=== PATIENT | male | born 1945 | race Caucasian/White ===

== ENCOUNTER 2019-06-13 10:34 | Emergency (ER) | payer SELFPAY ==
[2019-06-13 10:49] VITALS: BP 163/94; PULSE 77; RESP 16; TEMP 36.5; O2SAT 100
--- NOTE | 2019-06-13 10:54 | ED.URI ---
HPI - URI/Sore Throat General Chief Complaint: Upper Respiratory Infection Stated Complaint: Cold Time Seen by Provider: 06/13/19 10:54 Source: patient and RN notes reviewed Mode of arrival: ambulatory Limitations: no limitations History of Present Illness HPI Narrative: 73-year-old male presents with concern for cough. Reports flulike symptoms started 6 days ago and he has been taking [id number] medications with some relief. 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 Reports he had fever on days 1 and 2 of illness, has not had fever since. He reports his blood pressure is also been elevated since he has been L MD elicited complaint: cough Related Data Allergies Allergy/AdvReac Type Severity Reaction Status Date / Time lisinopril Allergy Severe Swelling Unverified 09/03/13 15:56 Penicillins Allergy Intermediate Hives Verified 06/13/19 10:47 Review of Systems Review of Systems: Narrative: CONSTITUTIONAL: Denies malaise, chills, sweats, or fever. EYES: Denies visual changes, redness, or discharge. ENT: Reports rhinorrhea, congestion. Denies sinus pain, otalgia and sore throat. CARDIOVASCULAR: Denies chest pain, palpitations, or edema. RESPIRATORY: Reports cough. Denies dyspnea. GASTROINTESTINAL: Denies abdominal pain, nausea, vomiting, diarrhea SKIN: Denies rash or itching. MUSCULOSKELETAL: Denies myalgia. NEUROLOGIC: Denies headache. All systems reviewed & are unremarkable except as noted in HPI and below PMFSH Comments At time of signature, agree with nursing past medical, surgical, social and family history. There is no relevant family history pertinent to the presenting complaint Exam Narrative: Exam Narrative: GENERAL: Well-appearing, well-nourished, and in no acute distress. HEAD: Normocephalic EYES: PERRLA, conjunctivae clear ENT: Nares clear, turbinates erythematous, clear discharge. Mucous membranes moist. TM pearly valdez with dull light reflex bilaterally; no tragal tenderness. Oropharynx not erythematous without lesions. Tonsils not enlarged and without exudate, no drooling, no hoarseness, no trismus. NECK: Supple. No lymphadenopathy CHEST: Clear to auscultation, breath sounds equal. No wheezing, rhonchi, rales, or stridor. No respiratory distress, speaks in full sentences. HEART: Regular rate and rhythm. No murmur heard. Normal peripheral pulses. SKIN: Warm, dry, no rash. NEURO: Alert and oriented x3. PSYCH: Normal mood and affect Course Course Emergency Course: Patient is aware of diagnosis, understands and agrees to treatment plan. Anticipatory guidance given. Patient agrees to follow-up as directed and is aware of reasons to seek care at the emergency department. Portions of this record may have been created with voice recognition software Vital Signs Vital signs: Vital Signs Temperature 97.7 F 06/13/19 10:49 Pulse Rate 77 06/13/19 10:49 Respiratory Rate 16 06/13/19 10:49 Blood Pressure 163/94 H 06/13/19 10:49 Pulse Oximetry 100 06/13/19 10:49 Temperature 97.7 F 06/13/19 10:49 Pulse Rate 77 06/13/19 10:49 Respiratory Rate 16 06/13/19 10:49 Blood Pressure 163/94 H 06/13/19 10:49 Pulse Oximetry 100 06/13/19 10:49 Reviewed. Pt has been instructed to follow up with his primary care provider within the next week regarding his elevated blood pressure today. MDM - URI/Sore Throat MDM Narrative Medical decision making narrative: Differential diagnosis considered: Strep pharyngitis, allergic rhinitis, upper respiratory tract infection, sinusitis, rhinosinusitis, nasopharyngitis. viral pharyngitis, otitis media, otitis externa, pneumonia, bronchitis, viral cough syndrome, viral syndrome, and influenza. Exam findings show no acute concerns or changes; patient is non-toxic appearing and is in no distress. Patient is appropriate for outpatient treatment and follow-up. Critical Care Time Critical Care Time Critical Care Time: No Discharge Plan Discharg
== END 2019-06-13 11:26 | disposition home or self-care (01) ==
PROVIDERS: Emergency Provider Nurse Practitioner
DX: R05 Cough (principal); I10 Essential (primary) hypertension; Z86.19 Personal history of other infectious and parasitic diseases
CPT/HCPCS: 99213; G0463

== ENCOUNTER 2019-08-31 10:49 | Emergency (ER) | payer SELFPAY ==
[2019-08-31 11:04] VITALS: BP 134/77; PULSE 75; RESP 16; TEMP 36.2; O2SAT 97
--- NOTE | 2019-08-31 11:28 | ED.MALEGU ---
HPI - Male Genitourinary General Chief complaint: Urogenital-Male Stated complaint: pain/urination Time Seen by Provider: 08/31/19 11:19 Source: patient and RN notes reviewed Mode of arrival: ambulatory Limitations: no limitations History of Present Illness HPI Narrative: Patient presents today with dysuria, dark-colored urine, and urinary urgency since June. At that time, he was seen by his PCP at the [facility] and prescribed an unknown antibiotic for an infection. States he did take the antibiotic, but was also drinking heavily at that time. Patient drinks 1 pint of vodka per day. He was told that his dark-colored urine was likely due to Azo that he had been taking. His last dose was 3 days ago. Denies hematuria, malodorous urine, nausea, vomiting, fever, abdominal pain or flank pain. Patient smokes 1 pack/day. Reports history of enlarged prostate. MD Complaint: dysuria Related Data Home Medications Medication Instructions Recorded Confirmed [facility] 08/31/19 Allergies Allergy/AdvReac Type Severity Reaction Status Date / Time lisinopril Allergy Severe Swelling Verified 08/31/19 11:13 Penicillins Allergy Intermediate Hives Verified 06/13/19 10:47 Review of Systems Review of Systems: Narrative: CONSTITUTIONAL: Denies body aches, fever, chills, or sweats. EYES: Denies visual changes, redness, or discharge. ENT: Denies rhinorrhea, congestion, sore throat, or otalgia. CARDIOVASCULAR: Denies chest pain, palpitations, or edema. RESPIRATORY: Denies cough or dyspnea. GASTROINTESTINAL: Denies abdominal pain, nausea, vomiting, or diarrhea. GENITOURINARY: Denies hematuria.+ Urgency, dark urine, dysuria SKIN: Denies rash, itching, or wounds. MUSCULOSKELETAL: Denies back pain, joint pain, or myalgia. NEUROLOGIC: Denies headache, numbness, tingling, or weakness. PSYCH: Denies depression or anxiety. PMFSH Social History Social History Gender identity (if verbalized by the patient): Male Comments At time of signature, I have reviewed and agree with nursing past medical, surgical, social and family history unless otherwise noted. Please see nursing chart for further information. There is no relevant family history pertinent to the presenting complaint Exam Narrative: Exam Narrative: GENERAL: Well-appearing, well-nourished, and in no acute distress. HEAD: Normocephalic, atraumatic. EYES: EOMI. No redness or drainage. Conjunctivae normal. ENT: Mucous membranes pink and moist. NECK: Normal AROM. Supple. No lymphadenopathy. CHEST: No respiratory distress. Clear to auscultation. HEART: Regular rate and rhythm. No murmur appreciated. Normal peripheral pulses. ABDOMEN: Soft, nontender, nondistended, normal active bowel sounds. -CVAT MUSCULOSKELETAL: No bony tenderness. EXTREMITIES: Normal range of motion. No edema. SKIN: Warm, dry, no rash. Capillary refill normal. Normal skin turgor. NEURO: No focal deficits. Alert and oriented x3. Gait steady. PSYCH: Normal affect. No signs of depression or anxiety. Course Vital Signs Vital signs: Vital Signs Temperature 97.2 F L 08/31/19 11:04 Pulse Rate 75 08/31/19 11:04 Respiratory Rate 16 08/31/19 11:04 Blood Pressure 134/77 08/31/19 11:04 Pulse Oximetry 97 08/31/19 11:04 Temperature 97.2 F L 08/31/19 11:04 Pulse Rate 75 08/31/19 11:04 Respiratory Rate 16 08/31/19 11:04 Blood Pressure 134/77 08/31/19 11:04 Pulse Oximetry 97 08/31/19 11:04 Reviewed. Pt has been instructed to follow up with his PCP regarding his elevated blood pressure today. MDM - Male Genitourinary Differential Diagnosis Differential diagnosis: Likely urinary tract infection, prostatitis and acute retention of urine Lab Data Attestation: I reviewed the patient's lab results. Labs: Urine Glucose Negative Reference Range: Negative Urine Bilirubin 1+ Reference Range: Negative Urine Ketone Negati
== END 2019-08-31 11:43 | disposition home or self-care (01) ==
PROVIDERS: Emergency Provider Nurse Practitioner
DX: N30.01 Acute cystitis with hematuria (principal); F17.210 Nicotine dependence, cigarettes, uncomplicated; Z86.19 Personal history of other infectious and parasitic diseases; N40.0 Benign prostatic hyperplasia without lower urinary tract symptoms
CPT/HCPCS: 81003; 87086; 99213; G0463

== ENCOUNTER 2021-11-18 19:40 | Emergency (ER) | payer SELFPAY ==
--- NOTE | ~2021-11-18 | CT_ITS ---
EXAMINATION: CT abdomen pelvis wo con DATE: 11/18/2021 21:41 INDICATION: hematuria TECHNIQUE: Computed tomography (CT) of the abdomen and pelvis was performed without intravenous contr ast. Automated exposure control and iterative reconstruction technique were employed. The dose-length product was 387.20 mGy-cm. COMPARISON: 06/01/2018. FINDINGS: Lower thorax: Emphysematous and senescent change. Peripheral reticulations may reflect a component of interstitial disease. Liver: Normal. Biliary/Gallbladder: Gallbladder is normal. No bile duct dilation. Pancreas: Stable duct dilation. No pancreatic mass. Spleen: Normal. Adrenals:No mass. Kidneys: No mass, stone, or hydronephrosis. GI tract: No small or large bowel dilation. Normal appendix. Diverticulosis without diverticulitis. Mesentery/Peritoneum: No ascites, mass, or free air. Retroperitoneum: No mass. Atherosclerotic abdominal aortic and/or arterial calcifications. Pelvis: Dennis catheter, in good position. Bladder wall thickening with mild inflammatory change. Depe ndent layering density within the bladder lumen. Nondependent gas. Mild prostatomegaly. Soft Tissues: Soft tissues and body wall unremarkable. Bones: No acute osseous finding. IMPRESSION: Dependent layering density within the bladder lumen may represent hemorrhagic, proteinaceous, or ceasar talline debris. Bladder wall thickening may be secondary to a chronic indwelling catheter, bladder in fection not excluded. Otherwise no acute abdominopelvic process detected. Reviewed, dictated and finalized at location K. IMPRESSION: Dependent layering density within the bladder lumen may represent hemorrhagic, proteinaceous, or crystalline debris. Bladder wall thickening may be secondary to a chronic indwelling catheter, bladder infection not excluded. Otherwise no acute abdominopelvic process detected.
[2021-11-18 20:01] VITALS: BP 157/86; PULSE 70; RESP 16; TEMP 36.3; O2SAT 100
[2021-11-18 20:33] LABS: Add Urine Microscopic? YES; Appearance Urine Turbid (Clear); Bilirubin Urine 3+ (Negative); Blood Urine 3+ (Negative); Color Urine Red (Yellow); Glucose Urine UA Negative (Negative); Ketones Urine 1+ mg/dL (Negative); Leukocyte Esterase Ur 3+ LEU/UL (Negative); Nitrate Urine Positive (Negative); Protein Urine 3+ mg/dL (Negative); Specific Grav Ur 1.025 (1.001-1.035); pH Urine 5.5 (5.0-9.0)
[2021-11-18 20:38] LABS: Bacteria Urine 3+ /hpf; RBC Urine >75 /hpf (0-2); WBC Urine >75 /hpf
--- NOTE | 2021-11-18 20:42 | ED.MALEGU ---
HPI - Male Genitourinary General Chief complaint: Urogenital-Male Stated complaint: blood in urine Time Seen by Provider: 11/18/21 20:22 Source: patient and RN notes reviewed Mode of arrival: ambulatory Limitations: no limitations History of Present Illness HPI Narrative: This is a 76 year old male with history of hypertension and BPH who presents for evaluation of hematuria. Patient states he developed lower abdominal pain yesterday and it has worsened. Last night he also developed burning with urination and hematuria. He states last night he was passed clots of blood. He has continued to have hematuria today and worsening pain. He denies nausea, vomiting, or fever. He denies back pain. He has had history of hematuria in the past but he states it was never this severe. He has urologist at the [facility]. He denies taking any blood thinner Related Data Home Medications Medication Instructions Recorded Confirmed [facility] 08/31/19 Allergies Allergy/AdvReac Type Severity Reaction Status Date / Time lisinopril Allergy Severe Swelling Verified 11/18/21 21:20 Penicillins Allergy Intermediate Hives Verified 11/18/21 21:20 Review of Systems Review of Systems: All systems reviewed & are unremarkable except as noted in HPI and below Constitutional: Constitutional: Reports chills, Reports fatigue and Denies fever(s) Cardiovascular: Cardiovascular: Denies chest pain Respiratory: Respiratory: Denies chest congestion and Denies cough Gastrointestinal: Gastrointestinal: Reports abdominal pain, Denies bloating, Reports nausea and Denies vomiting Genitourinary: Genitourinary: Reports hematuria and Reports dysuria PMFSH Past Medical History Medical History (Updated 11/19/21 @ 00:10 by Bhavani Campos MD) Hypertension Surgical History Surgical History (Updated 11/18/21 @ 20:45 by Bhavani Campos MD) H/O inguinal hernia repair Social History Social History (Updated 11/18/21 @ 20:46 by Bhavani Campos MD) Smoking status: Current every day smoker Gender identity (if verbalized by the patient): Male Exam Const: General: alert Nutritional Appearance: well nourished Limitations: no limitations HENMT: Head: normal to inspection Throat: posterior oropharynx normal Eyes: EOM: EOMs intact bilaterally Resp: Effort & Inspection: normal respiratory effort Auscultation: clear to auscultation bilaterally Cardio: Rate: regular rate Rhythm: regular rhythm Heart sounds: no murmurs GI: GI Palp: Yes Soft to palpation, Yes Tenderness to palpation present (GI), No Guarding due to palpation present (GI) and No Rigid due to palpation Auscultation: normal bowel sounds : General: Yes no CVA tenderness Penis: Yes uncircumcised Skin: General skin exam: normal color Rashes: no rashes Wounds: no wounds Neuro: General: patient oriented x3 and moves all extremities Cranial nerves: Yes CN's II-XII intact bilaterally Psych: Mental Status: mental status grossly normal Course Reevaluation(s) Reevaluation #1: PAtient had sanders catheter placed and bladder irrigated. Catheter draining well. Patient is having pain at catheter but no abdominal pain. Urine pink. I discussed wtih patient he will be discharged with catheter and he will need to follow up with his urologist. He is on flomax. He was given antibiotics in ER. Date: 11/19/21 Time: 00:08 Vital Signs Vital signs: Vital Signs Temperature 97.4 F L 11/18/21 20:01 Pulse Rate 70 11/18/21 20:01 Respiratory Rate 16 11/18/21 20:01 Blood Pressure 157/86 H 11/18/21 20:01 Pulse Oximetry 100 11/18/21 20:01 Oxygen Delivery Room Air 11/18/21 20:01 Temperature 97.4 F L 11/18/21 20:01 Pulse Rate 73 11/19/21 01:18 Respiratory Rate 18 11/19/21 01:18 Blood Pressure 142/74 H 11/19/21 01:18 Pulse Oximetry 98 11/19/21 01:18 Oxygen Delivery Room Air 11/18/21 20:01 MDM - Male Genitourinary Lab Data Attesta
[2021-11-18 20:50] VITALS: BP 159/78; PULSE 64; RESP 16; O2SAT 100
[2021-11-18 20:52] LABS: Basophils Percent Auto 0.5 % (0.2-1.2); Eosinophils Absolute Auto 0.1 K/mm3 (0-0.3); Eosinophils Percent Auto 1.9 % (0-4.4); Hematocrit 41.6 % (42.0-52.0); Hemoglobin 13.7 g/dL (14.0-18.0); Immature Granulocyte Absolute 0.01 K/mm3 (0.00-0.031); Immature Granulocyte Percent A 0.2 % (0-0.5); Lymphocytes Absolute Auto 2.17 K/mm3 (0.9-3.2); Lymphocytes Percent Auto 34.7 % (18.3-44.2); Mean Corpuscular HGB Conc 32.9 g/dl (32-36); Mean Corpuscular Hemoglobin 29.4 pg (26-34); Mean Corpuscular Volume 89.3 fl (80-100); Mean Platelet Volume 9.4 fl (7.4-10.4); Monocytes Absolute Auto 0.5 K/mm3 (0.1-0.6); Monocytes Percent Auto 7.7 % (2.6-8.5); Neutrophils Absolute Auto 3.5 K/mm3 (1.3-6.7); Platelet Count Result 174 k/mm3 (150-375); Red Blood Count 4.66 M/mm3 (4.6-6.20); Red Cell Distribution Width 13.1 % (11.5-14.5); White Blood Count 6.3 K/mm3 (4.5-10.0)
[2021-11-18 21:02] LABS: Alanine Aminotransferase 33 U/L (6-50); Albumin Level 4.4 g/dL (3.5-5.1); Alkaline Phosphatase 70 U/L (38-126); Anion Gap 9 mmol/L (8-16); Aspartate Amino Transferase 31 U/L (17-59); Bilirubin,Total 0.6 mg/dL (0.2-1.3); Blood Urea Nitrogen 10 mg/dL (9-20); Calcium 8.9 mg/dL (8.4-10.2); Carbon Dioxide 26 mmol/L (22-30); Chloride 107 mmol/L (98-107); Estimated CRCL calculation 56 ml/min; Estimated Glomerular Filt Rate > 60; Glucose 102 mg/dL (65-110); Potassium 4.2 mmol/L (3.4-5.0); Sodium 142 mmol/L (137-145)
[2021-11-18 21:06] LABS: INR 1.1; Partial Thromboplastin Time 30.1 SECONDS (22.3-36.8)
[2021-11-18] MEDS: MORPHINE SULFATE (*CRX) 4 MG/ML INJ IV PUSH (21:21)
[2021-11-18] MEDS: ONDANSETRON INJ 4 MG/2 ML VIAL IV PUSH (21:21)
[2021-11-18 22:57] VITALS: PULSE 63; RESP 16; O2SAT 99
[2021-11-18 23:05] VITALS: BP 151/91
--- NOTE | 2021-11-18 23:05 | PC.NURSE ---
Pt requesting additional pain medication for penile pain, EDP notified. NO new orders
[2021-11-19 01:18] VITALS: BP 142/74; PULSE 73; RESP 18; O2SAT 98
== END 2021-11-19 01:20 | disposition home or self-care (01) ==
PROVIDERS: Emergency Medicine; Emergency Provider General Practice
DX: N30.91 Cystitis, unspecified with hematuria (principal); I10 Essential (primary) hypertension; F17.200 Nicotine dependence, unspecified, uncomplicated
CPT/HCPCS: 36415; 51700; 74176; 80053; 81001; 85025; 85610; 85730; 87086; 96365; 96375; 99284; J1956; J2270; J2405

== ENCOUNTER 2021-11-23 09:18 | Emergency (ER) | payer SELFPAY ==
--- NOTE | ~2021-11-23 | CT_ITS ---
EXAMINATION: CT abdomen pelvis w con DATE: 11/23/2021 10:53 INDICATION: Abnormal pain TECHNIQUE: Computed tomography (CT) of the abdomen and pelvis was performed with 100 mL Omnipaque-300 intravenous contrast. Automated exposure control and iterative reconstruction technique were employe d. The dose-length product was 366.93 mGy-cm. COMPARISON: 11/18/21 and 06/01/2018 FINDINGS: Chronic mild irregular peripheral septal line thickening along with some honeycombing consistent with chronic interstitial lung disease with usual interstitial pneumonia (UIP). A few small calcified nod ules in the right lower lobe and a couple tiny hepatic and splenic calcific lesions consistent with o ld granulomatous disease. Heart size is normal. No pericardial or pleural effusion. Gallbladder, panc reas and bilateral adrenal glands are normal. No change in subcentimeter bilateral renal cysts. There is a Dennis catheter within the partially decompressed bladder which demonstrates diffuse edematous p attern wall thickening with mucosal hyperemia with mild stranding in the surrounding fat suspicious f or cystitis. Mild prostatomegaly measuring 4.6 x 3.7 cm. There is mild colonic diverticulosis with a descending colon predominance. There is no adjacent inflammatory change to suggest diverticulitis. Sm all bowel and appendix are normal . No pericecal inflammatory change to suggest acute appendicitis. S mall fat-containing direct left inguinal hernia. No free intraperitoneal gas or fluid. No pathologica lly enlarged abdominal or pelvic lymphadenopathy. Mild lumbar dextroscoliosis with mild to moderate l umbar spondylosis. Prominent Schmorl's nodes on both sides of the L4-L5 disc space. IMPRESSION: 1. Dennis catheter in the bladder which demonstrated prominent wall thickening with mucosal hyperemia and stranding in the surrounding fat suspicious for cystitis. Correlate with urinalysis. 2. Mild diverticulosis. 3. Mild prostatomegaly. 4. Chronic peripheral interstitial lung disease at the lung bases with appearance favoring usual inte rstitial pneumonia (UIP). Reviewed, dictated and finalized at location A. IMPRESSION: 1. Dennis catheter in the bladder which demonstrated prominent wall thickening w ith mucosal hyperemia and stranding in the surrounding fat suspicious for cysti tis. Correlate with urinalysis. 2. Mild diverticulosis. 3. Mild prostatomegaly. 4. Chronic peripheral interstitial lung disease at the lung bases with appearan ce favoring usual interstitial pneumonia (UIP).
[2021-11-23 09:21] VITALS: BP 123/67; PULSE 86; RESP 18; TEMP 36.4; O2SAT 98
[2021-11-23] MEDS: SODIUM CHLORIDE 0.9% IV 1,000 ML 999 ML IV CONT (10:02)
[2021-11-23 10:12] LABS: Basophils Percent Auto 0.3 % (0.2-1.2); Eosinophils Absolute Auto 0.1 K/mm3 (0-0.3); Eosinophils Percent Auto 1.3 % (0-4.4); Hematocrit 36.4 % (42.0-52.0); Hemoglobin 12.5 g/dL (14.0-18.0); Immature Granulocyte Absolute 0.01 K/mm3 (0.00-0.031); Immature Granulocyte Percent A 0.1 % (0-0.5); Lymphocytes Absolute Auto 1.89 K/mm3 (0.9-3.2); Lymphocytes Percent Auto 26.3 % (18.3-44.2); Mean Corpuscular HGB Conc 34.3 g/dl (32-36); Mean Corpuscular Hemoglobin 29.8 pg (26-34); Mean Corpuscular Volume 86.7 fl (80-100); Mean Platelet Volume 9.4 fl (7.4-10.4); Monocytes Absolute Auto 0.7 K/mm3 (0.1-0.6); Monocytes Percent Auto 9.7 % (2.6-8.5); Neutrophils Absolute Auto 4.5 K/mm3 (1.3-6.7); Neutrophils Percent Auto 62.3 % (45.5-73.1); Platelet Count Result 181 k/mm3 (150-375); Red Cell Distribution Width 12.6 % (11.5-14.5); White Blood Count 7.2 K/mm3 (4.5-10.0)
[2021-11-23 10:13] LABS: Appearance Urine Cloudy (Clear); Bilirubin Urine 1+ (Negative); Blood Urine 3+ (Negative); Glucose Urine UA Negative (Negative); Ketones Urine 1+ mg/dL (Negative); Leukocyte Esterase Ur 2+ LEU/UL (Negative); Nitrate Urine Negative (Negative); Protein Urine 3+ mg/dL (Negative); Specific Grav Ur 1.025 (1.001-1.035)
[2021-11-23 10:24] LABS: Alanine Aminotransferase 22 U/L (6-50); Albumin Level 3.7 g/dL (3.5-5.1); Alkaline Phosphatase 44 U/L (38-126); Anion Gap 8 mmol/L (8-16); Aspartate Amino Transferase 27 U/L (17-59); Bilirubin,Total 0.7 mg/dL (0.2-1.3); Blood Urea Nitrogen 17 mg/dL (9-20); Calcium 8.8 mg/dL (8.4-10.2); Carbon Dioxide 23 mmol/L (22-30); Chloride 103 mmol/L (98-107); Estimated CRCL calculation 56 ml/min; Estimated Glomerular Filt Rate > 60; Glucose 161 mg/dL (65-110); Lipase 91 U/L (23-300); Potassium 3.4 mmol/L (3.4-5.0); Sodium 134 mmol/L (137-145)
[2021-11-23 10:42] LABS: Lactic Acid Reflex 1.9 mmol/L (0.7-2.0)
[2021-11-23 10:47] LABS: Mucus Urine Rare /lpf; RBC Urine >75 /hpf (0-2); Squamous Epithelial Cell Urine Rare /hpf (Few); WBC Urine >75 /hpf
[2021-11-23 11:01] LABS: Add Urine Microscopic? YES; Color Urine Light Red (Yellow)
--- NOTE | 2021-11-23 11:38 | PC.NURSE ---
Pt reported to this RN that he does not want to leave here and go home. Pt reports he lives with his 13 year old son and his significant other, and her son. Pt reports they are drinkers and there's always loud music and it's not a healing environment. 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 There are stairs at my place and it's hard to walk up them with this leg bag. Case coordination called, states she will come speak with patient.
--- NOTE | 2021-11-23 13:02 | PCCCNOTE ---
Addendum entered by Lori Taylor RN 11/23/21 13:37: Called to ID SW at number provided by patient [phone], left a message. Addition: When updating Dr. Sandoval and ED RN Domi, requested that RN will get him up/walk him to assess functional/mobility status. Original Note: Called to meet with patient about home environment. Met with patient in ER Room 3,. Patient states that he is trying to get into a rehab/group home to rehab and recover due to infection and catheter. Patient states that he lives at home with his ladyfriend Linda Suarez, patient states that she is off from work and drinking more now. Patient states that she was a day late picking up his medication but he does have the medication now. He also lives with his son that is 13 and the patient's step son who is 30 years and works a lot. He states that Linda is her late 50's and he denies any physical or emotional abuse. He is able to walk around at home and denies any use of assisting devices. He states that he is working with a ID SW to get into a ID SNF. Patient states that a SW is coming to his house of the for an eval. [facility] since he prefers to be around other patient's that understand what is was to be a [place] during [place] war. Patient states that his SW at the [facility] is at [phone]. Advised that this palliative care specialist will call and leave her a message. Patient is agreeable. Advised that this palliative care specialist would to not be able to get into a [facility], patient is agreeable to keep working with ID SW to get into the choice facility. Patient is complaining of pain related to is catheter. He was given Tylenol but is not getting good relief. Advised that the medical staff would be notified. Update bedside MARILYNN Vega and ED provider Dr. Sandoval.
[2021-11-23] MEDS: traMADol HCL (*CRX) 50 MG TABLET PO (13:17)
--- NOTE | 2021-11-23 14:00 | PC.NURSE ---
Addendum entered by Domi Davila RN 11/23/21 14:01: Pt's sanders bag emptied. Original Note: Pt ambulated slowly but independently around the ED. Walked to RR and back to room as well. updated.
--- NOTE | 2021-11-23 15:18 | ED.GENADULT ---
HPI - General Adult General Chief complaint: Urogenital-Male Stated complaint: ABD/RECTAL PAIN Source: RN notes reviewed History of Present Illness HPI narrative: Patient presents emergency department from home for abdominal pain. 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 States he has been taking Tylenol for the pain with minimal relief with last dose yesterday states he is scheduled to see a urologist at the [facility] this week Related Data Home Medications Medication Instructions Recorded Confirmed [facility] 08/31/19 Allergies Allergy/AdvReac Type Severity Reaction Status Date / Time lisinopril Allergy Severe Swelling Verified 11/18/21 21:20 Penicillins Allergy Intermediate Hives Verified 11/18/21 21:20 Review of Systems Review of Systems: Gen.: Denies fevers or chills ENT: Denies congestion Respiratory: Denies shortness of breath or cough CV: Denies chest pain or palpitations GI: Reports lower abdominal pain, denies nausea, emesis or diarrhea reports Dennis catheter Musculoskeletal: Denies back pain or muscle pain Neuro: Denies numbness, tingling, weakness or focal weakness Skin: Denies rash Except as documented, all other systems reviewed and negative [facility] Past Medical History Medical History Hypertension Surgical History Surgical History (Updated 11/18/21 @ 20:45 by Bhavani Campos MD) H/O inguinal hernia repair Social History Social History Smoking status: Current every day smoker Gender identity (if verbalized by the patient): Male Exam Narrative: APPEARANCE: No acute distress, nontoxic, resting in bed EYES: EOMI HEENT: Normocephalic, atraumatic, OMM RESPIRATORY: No respiratory distress Clear to auscultation bilaterally with no rhonchi wheezing or rales. CARDIOVASCULAR: Regular rate and rhythm without murmurs rubs or gallops. ABDOMINAL: Soft, nondistended tender to palpation in the suprapubic and right lower quadrant left lower quadrant no tenderness right upper quadrant left lower quadrant no rebound or guarding Rectal: No hemorrhoids or fissures nontender to palpation no fluctuance : Dennis catheter present draining yellow urine there is no skin lesions seen there is no swelling of the scrotum no testicular tenderness there is no erythema of the scrotum or perineum MUSCULOSKELETAl: Moves all extremities. No clubbing, cyanosis or edema. NEURO: Awake and alert. Following commands, speech normal, no focal deficits SKIN:: Warm, dry. No rashes lesions or abrasions PSYCHIATRIC: Normal affect/mood, Course Course Emergency Course: Reviewed old records the patient did have a UA with culture sent that was negative from 5 days Discussed with patient results of workup and diagnosis. Discussed need for follow-up with primary care, proper use of medication, and reasons to return to the emergency department. Patient understands and agrees to current treatment plan patient states he does not have any more antibiotics at home he states he took a dose this morning but is out of antibiotics he is unsure if he lost his antibiotics right-I will place the patient on a few more days of Levaquin Vital Signs Vital signs: Vital Signs Temperature 97.5 F L 11/23/21 09:21 Pulse Rate 86 11/23/21 09:21 Respiratory Rate 18 11/23/21 09:21 Blood Pressure 123/67 11/23/21 09:21 Pulse Oximetry 98
[2021-11-23] MEDS: OXYBUTYNIN CHLORIDE 5 MG TABLET PO (15:46)
[2021-11-23 15:53] VITALS: BP 123/83; PULSE 68; RESP 15; O2SAT 100
[2021-11-23 16:40] VITALS: BP 126/74; PULSE 71; RESP 17; O2SAT 98
--- NOTE | 2021-11-23 16:41 | PCCCNOTE ---
Patient cleared for discharge does not have any money for transportation, step son is working and his lady friend at home has had an increase in alcohol intake. Patient does not drive and his meds were picked up one day late after previous admission as no one was able to pick them up for him. Prescriptions have been sent to [facility] in [facility]. Cab voucher provided for two stops-first stop to [facility] pharmacy to bulk picker meds and 2nd stop to him home. Home address confirmed with patient. Cab voucher provided to bedside RN.
== END 2021-11-23 16:40 | disposition home or self-care (01) ==
PROVIDERS: Emergency Provider Emergency Medicine
DX: N39.0 Urinary tract infection, site not specified (principal); I10 Essential (primary) hypertension; F17.200 Nicotine dependence, unspecified, uncomplicated; K57.90 Diverticulosis of intestine, part unspecified, without perforation or abscess without bleeding; N40.0 Benign prostatic hyperplasia without lower urinary tract symptoms; J84.89 Other specified interstitial pulmonary diseases
CPT/HCPCS: 36415; 74177; 80053; 81001; 83605; 83690; 85025; 87086; 96361; 96374; 99284; A9270; J0131; J7030; Q9967

== ENCOUNTER 2021-11-24 07:17 | Emergency (ER) | payer SELFPAY ==
[2021-11-24 07:19] VITALS: BP 126/75; PULSE 71; RESP 20; TEMP 36.1; O2SAT 99
[2021-11-24 08:08] LABS: Basophils Percent Auto 0.6 % (0.2-1.2); Eosinophils Absolute Auto 0.1 K/mm3 (0-0.3); Eosinophils Percent Auto 1.7 % (0-4.4); Hematocrit 36.2 % (42.0-52.0); Hemoglobin 12.4 g/dL (14.0-18.0); Immature Granulocyte Absolute 0.02 K/mm3 (0.00-0.031); Immature Granulocyte Percent A 0.3 % (0-0.5); Lymphocytes Absolute Auto 1.98 K/mm3 (0.9-3.2); Lymphocytes Percent Auto 27.3 % (18.3-44.2); Mean Corpuscular HGB Conc 34.3 g/dl (32-36); Mean Corpuscular Hemoglobin 29.6 pg (26-34); Mean Corpuscular Volume 86.4 fl (80-100); Monocytes Absolute Auto 0.7 K/mm3 (0.1-0.6); Monocytes Percent Auto 10.1 % (2.6-8.5); Neutrophils Absolute Auto 4.4 K/mm3 (1.3-6.7); Platelet Count Result 166 k/mm3 (150-375); Red Blood Count 4.19 M/mm3 (4.6-6.20); Red Cell Distribution Width 12.8 % (11.5-14.5); White Blood Count 7.2 K/mm3 (4.5-10.0)
[2021-11-24 08:19] LABS: Alanine Aminotransferase 20 U/L (6-50); Albumin Level 3.8 g/dL (3.5-5.1); Alkaline Phosphatase 46 U/L (38-126); Anion Gap 9 mmol/L (8-16); Aspartate Amino Transferase 26 U/L (17-59); Bilirubin,Total 0.7 mg/dL (0.2-1.3); Blood Urea Nitrogen 10 mg/dL (9-20); Calcium 8.5 mg/dL (8.4-10.2); Carbon Dioxide 22 mmol/L (22-30); Chloride 103 mmol/L (98-107); Estimated Glomerular Filt Rate > 60; Glucose 117 mg/dL (65-110); Lactic Acid Reflex 0.9 mmol/L (0.7-2.0); Potassium 3.5 mmol/L (3.4-5.0); Sodium 134 mmol/L (137-145)
[2021-11-24 08:25] LABS: INR 1.2; Prothrombin Time 14.8 Seconds (11.1-14.7)
[2021-11-24 08:26] LABS: Partial Thromboplastin Time 29.3 SECONDS (22.3-36.8)
[2021-11-24] MEDS: traMADol HCL (*CRX) 50 MG TABLET PO (09:21)
--- NOTE | 2021-11-24 09:27 | PC.NURSE ---
lópez duncan to remove pt sanders catheter. This rn removed pt catheter at this time.
--- NOTE | 2021-11-24 09:57 | PC.NURSE ---
Reg Breakfast diet tray ordered
--- NOTE | 2021-11-24 11:36 | ED.MALEGU ---
HPI - Male Genitourinary General Chief complaint: Urogenital-Male Stated complaint: CATHETER PAIN Time Seen by Provider: 11/24/21 07:17 Source: RN notes reviewed History of Present Illness HPI Narrative: Patient presents emergency department from home via EMS for catheter pain. The patient states he had a Dennis catheter placed approximately 6 days ago states that he continues to have pain in his penis that goes into his lower abdomen and goes down into his rectum since the Dennis catheter was placed. He states he did take the medication he was prescribed yesterday for bladder spasming and states he is on Levaquin last dose last night he denies any fevers or chills nausea vomiting diarrhea or any other symptoms Related Data Home Medications Medication Instructions Recorded Confirmed [facility] 08/31/19 Allergies Allergy/AdvReac Type Severity Reaction Status Date / Time lisinopril Allergy Severe Swelling Verified 11/18/21 21:20 Penicillins Allergy Intermediate Hives Verified 11/18/21 21:20 Review of Systems Review of Systems: Gen.: Denies fevers or chills ENT: Denies congestion Respiratory: Denies shortness of breath or cough CV: Denies chest pain or palpitations GI: Reports lower abdominal pain. Denies nausea, emesis or diarrhea see HPI Musculoskeletal: Denies back pain or muscle pain Neuro: Denies numbness, tingling, weakness or focal weakness Skin: Denies rash Except as documented, all other systems reviewed and negative PMFSH Past Medical History Medical History Hypertension Surgical History Surgical History (Updated 11/18/21 @ 20:45 by Bhavani Campos MD) H/O inguinal hernia repair Social History Social History Smoking status: Current every day smoker Gender identity (if verbalized by the patient): Male Exam Narrative: APPEARANCE: No acute distress, nontoxic, resting in bed HEENT: Normocephalic, atraumatic, OMM RESPIRATORY: No respiratory distress, clear to auscultation bilaterally with no rhonchi wheezing or rales CARDIOVASCULAR: RRR s murmur ABDOMINAL: Soft nondistended tender palpation in bilateral lower abdomen no tenderness in right upper quadrant left lower quadrant no rebound or guard : Dennis catheter present there is no skin lesions no scrotal swelling or erythema no testicular tenderness MUSCULOSKELETAl: Moves all extremities. No clubbing, cyanosis or edema. NEURO: Awake and alert. Following commands, speech normal, no focal deficits SKIN:: Warm, dry. Normal Color PSYCHIATRIC: Normal affect/mood Course Course Emergency Course: Patient is known to myself from visit yesterday continues to have pain from the catheter. Called discussed with Dr. Walker at this time we felt that the most likely treatment will be to remove the catheter and see if patient is able to urinate if he is able to urinate he may be discharged with follow-up as an outpatient Dennis catheter removed in ED patient states pain is improved Patient has been able to urinate in the ED Discussed with patient results of workup and diagnosis. Discussed need for follow-up with primary care, proper use of medication, and reasons to return to the emergency department. Patient understands and agrees to current treatment plan Vital Signs Vital signs: Vital Signs Temperature 97.0 F L 11/24/21 07:19 Pulse Rate 71 11/24/21 07:19 Respiratory Rate 20 11/24/21 07:19 Blood Pressure 126/75 11/24/21 07:19 Pulse Oximetry 99 11/24/21 07:19 Oxygen Delivery Room Air 11/24/21 07:19 Temperature 97.0 F L 11/24/21 07:19 Pulse Rate 71 11/24/21 07:19 Respiratory Rate 20 11/24/21 07:19 Blood Pressure 126/75 11/24/21 07:19 Pulse Oximetry 99 11/24/21 07:19 Oxygen Delivery Room Air 11/24/21 07:19 MDM - Male Genitourinary Lab Data Result diagrams: 11/24/21 07:58 07/3
== END 2021-11-24 12:45 | disposition home or self-care (01) ==
PROVIDERS: Emergency Provider Emergency Medicine
DX: N39.0 Urinary tract infection, site not specified (principal); I10 Essential (primary) hypertension; F17.200 Nicotine dependence, unspecified, uncomplicated
CPT/HCPCS: 36415; 80053; 83605; 85025; 85610; 85730; 99283; A9270